=== PATIENT | male | born 1970 | race Caucasian/White ===

== ENCOUNTER 2017-04-02 07:00 | Emergency (ER) | payer OTHER ==
[~2017-04-02] VITALS: Ht 185.4 cm; Wt 98.1 kg
[2017-04-02] MEDS ORDERED: TESSALON PERLE100 MG PO (08:42)
[2017-04-02] MEDS ORDERED: PREDNISONE50 MG PO (08:42)
[2017-04-02] MEDS ORDERED: VENTOLIN HFA18 GM IH (08:42)
[2017-04-02 08:56] VITALS: BP 151/88
== END 2017-04-02 09:21 | disposition home or self-care (01) ==
LOC: EME 07:00
DX: J40 Bronchitis, not specified as acute or chronic (principal); J98.01 Acute bronchospasm
CPT/HCPCS: 71020; 94640; 99281; 99284